=== PATIENT | male | born 1935 | race Caucasian/White ===

== ENCOUNTER → 2020-12-16 14:44 | Outpatient (CLI) | payer OTHER, SELFPAY ==
--- NOTE | ~2020-12-16 | XR_ITS ---
EXAMINATION: XR hip RT 2V w AP pelvis INDICATION: Right hip pain TECHNIQUE: AP view of the pelvis and two views of the right hip are obtained. COMPARISON: None available FINDINGS: Bone alignment is normal. There is no fracture. 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 T here is at least moderate spondylosis of the visualized lower lumbar spine. Calcified atherosclerosis is noted. IMPRESSION: 1. No acute osseous abnormality. Reviewed, dictated and finalized at location A.
== END ==
PROVIDERS: PCP Internal Medicine; Visit Provider Internal Medicine
DX: M25.551 Pain in right hip (principal)
CPT/HCPCS: 73502

== ENCOUNTER 2021-04-07 16:54 | Emergency (ER) | payer OTHER, SELFPAY ==
[2021-04-07 16:59] VITALS: BP 170/69; PULSE 70; RESP 16; TEMP 36.4; O2SAT 99
--- NOTE | 2021-04-07 17:51 | ED.URI ---
HPI - URI/Sore Throat General Chief Complaint: Upper Respiratory Infection Stated Complaint: covid symptoms Time Seen by Provider: 04/07/21 17:23 Source: patient and RN notes reviewed Mode of arrival: ambulatory Limitations: no limitations History of Present Illness HPI Narrative: Patient presents today complaining of rhinorrhea, cough since yesterday. Denies fever, shortness of breath, loss of taste or smell, nausea or vomiting. This past weekend, patient attended a 4-day wedding with 150 attendees. He and his have become ill and were told to come in to urgent care for testing for COVID-19 by his PCP. Patient has been vaccinated against COVID-19. He has tried no [id number] treatment prior to arrival. MD elicited complaint: cough and rhinorrhea Related Data Home Medications Medication Instructions Recorded Confirmed atorvastatin 04/07/21 atropine [Isopto Atropine] drp 04/07/21 clopidogrel 04/07/21 cyanocobalamin (vitamin B-12) mcg 04/07/21 fluorometholone drp 04/07/21 metoprolol tartrate 04/07/21 omeprazole 04/07/21 prednisone 04/07/21 Allergies Allergy/AdvReac Type Severity Reaction Status Date / Time No Known Allergies Allergy Verified 04/07/21 17:03 Review of Systems Review of Systems: CONSTITUTIONAL: Denies body aches, fever, chills, or sweats. EYES: Denies visual changes, redness, or discharge. ENT: Denies congestion, sore throat, or otalgia.+ Rhinorrhea CARDIOVASCULAR: Denies chest pain, palpitations, or edema. RESPIRATORY: Denies dyspnea.+ Cough GASTROINTESTINAL: Denies abdominal pain, nausea, vomiting, or diarrhea. GENITOURINARY: Denies dysuria or hematuria. SKIN: Denies rash, itching, or wounds. MUSCULOSKELETAL: Denies back pain, joint pain, or myalgia. NEUROLOGIC: Denies headache, numbness, tingling, or weakness. PSYCH: Denies depression or anxiety. [facility] Past Medical History Medical History (Updated 04/07/21 @ 18:10 by Mei Coles, MARISSA, BC) Cochlear implant in place Glaucoma High cholesterol Hypertension Temporal arteritis Surgical History Surgical History (Updated 04/07/21 @ 18:10 by Mei Coles, CONTROL MANAGER, BC) History of coronary artery stent placement Comments At time of signature, I have reviewed and agree with nursing past medical, surgical, social and family history unless otherwise noted. Please see nursing chart for further information. There is no relevant family history pertinent to the presenting complaint Exam Narrative: GENERAL: Well-appearing, well-nourished, and in no acute distress. HEAD: Normocephalic, atraumatic. EYES: EOMI. No redness or drainage. Conjunctivae normal. ENT: Mucous membranes pink and moist. Nares clear. No rhinorrhea. TMs normal bilaterally. Throat normal. Uvula midline. Hard of hearing NECK: Normal AROM. Supple. No lymphadenopathy. CHEST: No respiratory distress. Clear to auscultation. HEART: Regular rate and rhythm. No murmur appreciated. Normal peripheral pulses. EXTREMITIES: Normal range of motion. No edema. SKIN: Warm, dry, no rash. Capillary refill normal. Normal skin turgor. NEURO: No focal deficits. Alert and oriented x3. Gait steady. PSYCH: Normal affect. No signs of depression or anxiety. Course Vital Signs Vital signs: Vital Signs Temperature 97.5 F L 04/07/21 16:59 Pulse Rate 70 04/07/21 16:59 Respiratory Rate 16 04/07/21 16:59 Blood Pressure 170/69 H 04/07/21 16:59 Pulse Oximetry 99 04/07/21 16:59 Temperature 97.5 F L 04/07/21 16:59 Pulse Rate 70 04/07/21 16:59 Respiratory Rate 16 04/07/21 16:59 Blood Pressure 170/69 H 04/07/21 16:59 Pulse Oximetry 99 04/07/21 16:59 Reviewed. Pt has been instructed to follow up with his PCP regarding his elevated blood pressure today. MDM - URI/Sore Throat Differential Diagnosis Differential diagnosis: Likely upper respiratory infection, sinusitis, viral infection and other (COVID-19) Lab Data Attestation: I review
[2021-04-09 18:27] LABS: SARS-CoV-2 RNA PCR Negative
== END 2021-04-07 18:03 | disposition home or self-care (01) ==
PROVIDERS: Emergency Provider Nurse Practitioner; PCP Internal Medicine
DX: J06.9 Acute upper respiratory infection, unspecified (principal); Z20.822 Contact with and (suspected) exposure to COVID-19; Z96.21 Cochlear implant status; H40.9 Unspecified glaucoma; E78.00 Pure hypercholesterolemia, unspecified; I10 Essential (primary) hypertension; Z95.5 Presence of coronary angioplasty implant and graft
CPT/HCPCS: 87426; 99203; C9803; G0463; U0003; U0005

== ENCOUNTER 2023-07-15 14:43 | Emergency (ER) | payer OTHER, SELFPAY ==
[2023-07-15 14:53] VITALS: BP 171/72; PULSE 62; RESP 16; TEMP 36.4; O2SAT 100
--- NOTE | 2023-07-15 15:03 | ED.GENADULT ---
HPI - General Adult General Chief complaint: Ear Stated complaint: NOSEBLEED Source: patient, family and RN notes reviewed History of Present Illness HPI narrative: 88 yo M presents to urgent care with complaints of a nosebleed since 4 am today. Pt states he has been trying to control this at home with pinching the nose and applying ice packs to his forehead and posterior neck. Pt states he normally take 81 mg of ASA daily but didn't take it today. Denies any nasal injury, pain, JENKINS, dizziness, chest pain, or SOB. Related Data Home Medications Medication Instructions Recorded Confirmed atropine 1 % eye drops (Isopto 1 drp LEFT EYE 3XW 04/07/21 07/15/23 Atropine) cyanocobalamin (vitamin B-12) 1,000 mcg PO DAILY 04/07/21 07/15/23 1,000 mcg tablet fluorometholone 0.1 % eye 1 drp LEFT EYE DAILY 04/07/21 07/15/23 drops,suspension metoprolol tartrate 50 mg tablet 50 mg PO BID 04/07/21 07/15/23 omeprazole 20 mg capsule,delayed 20 mg PO DAILY 04/07/21 07/15/23 release prednisone 5 mg tablet 4 mg PO DAILY 04/07/21 07/15/23 aspirin 81 mg capsule 81 mg PO DAILY 07/15/23 07/15/23 brimonidine 0.2 %-timolol 0.5 % 1 drp RIGHT EYE BID 07/15/23 07/15/23 eye drops ketorolac 0.5 % eye drops 1 drp RIGHT EYE BID 07/15/23 07/15/23 Allergies Allergy/AdvReac Type Severity Reaction Status Date / Time No Known Allergies Allergy Verified 07/15/23 15:08 Review of Systems Review of Systems: CONSTITUTIONAL: Denies fever, chills, or sweats. EYES: Denies visual changes, redness, or discharge. ENT: nose bleed CARDIOVASCULAR: Denies chest pain, palpitations, or edema. RESPIRATORY: Denies cough or dyspnea. GASTROINTESTINAL: Denies abdominal pain, nausea, vomiting, or diarrhea. GENITOURINARY: Denies dysuria or hematuria. SKIN: Denies rash or itching. MUSCULOSKELETAL: Denies back pain, joint pain, or myalgia. NEUROLOGIC: Denies headache, numbness, or weakness. Pertinent positives per HPI. [facility] Past Medical History Medical History (Updated 07/15/23 @ 16:14 by Katy Jim, EXPEDITION SUPERVISOR) Cochlear implant in place Glaucoma High cholesterol Hypertension Temporal arteritis Surgical History Surgical History (Updated 04/07/21 @ 18:10 by Mei Coles, [facility], ) History of coronary artery stent placement Comments At the time of my signature, I reviewed and agree with the nursing past medical, surgical, social, and family history. There is no relevant family history pertinent to the patient complaint. Exam Narrative: GENERAL: This is a well-nourished, well-developed patient, in no apparent distress. HEAD: normocephalic, atraumatic. EYES: Sclera clear/white. Vision is grossly intact. EARS: External ears normal, auditory canals clear and without drainage, TMs normal without perforation. Hearing grossly intact. NOSE: External nose normal with no obvious nasal discharge. large blood clot removed with pt's tissue when it was removed. Thin streak of blood noted to posterior pharynx. THROAT: Mucous membranes moist, posterior pharynx clear. NECK: Neck supple, non-tender without lymphadenopathy, masses or thyromegaly. CARDIOVASCULAR: Regular rate and rhythm without murmurs, gallops, or rubs. RESPIRATORY: Clear to auscultation. Breath sounds equal bilaterally. No wheezes, rales, or rhonchi. GASTROINTESTINAL: Abdomen soft, non-tender, nondistended. Bowel sounds are active. No hepato-splenomegaly, or palpable masses. No guarding. SKIN: warm, intact with no suspicious lesions or rash, good texture and turgor. NEURO: awake, alert, and oriented to person, place and time. There were no obvious focal neurologic abnormalities. EXTREMITIES: No clubbing, cyanosis, or edema. No joint tenderness, effusion, or edema noted. BACK: Nontender without deformity or crepitus. No flank tenderness. Course Course Level of Care: Express Care Visit Vital Signs Vital signs: Vital Signs Temperature 97.5 F L 07/15/23 14:53 Pulse Rate 62
[2023-07-15] MEDS: PHENYLEPHRINE 1% NA SPR (*BKC) 15 ML BTL 1 SPRAY NASAL (16:19)
== END 2023-07-15 16:29 | disposition home or self-care (01) ==
PROVIDERS: Emergency Provider Nurse Practitioner Family; PCP Internal Medicine
DX: R04.0 Epistaxis (principal); H40.9 Unspecified glaucoma; E78.00 Pure hypercholesterolemia, unspecified; I10 Essential (primary) hypertension; I25.10 Atherosclerotic heart disease of native coronary artery without angina pectoris; Z95.5 Presence of coronary angioplasty implant and graft; Z96.21 Cochlear implant status; Z79.82 Long term (current) use of aspirin
CPT/HCPCS: 99212; A9270; G0463

== ENCOUNTER → 2023-08-17 10:41 | Outpatient (CLI) | payer OTHER, SELFPAY ==
--- NOTE | ~2023-08-17 | XR_ITS ---
XR chest 2V 08/17/2023 11:17 Indication: Cough. Procedure: 2 view chest Comparison: No prior studies for comparison. Findings: Heart size normal. No focal air space disease, pulmonary edema, pleural effusion or suspect ed pneumothorax. Impression: 1: No acute cardiopulmonary disease. Reviewed, dictated and finalized at location B. 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
== END ==
PROVIDERS: PCP Internal Medicine; Visit Provider Internal Medicine
DX: R05.9 Cough, unspecified (principal)
CPT/HCPCS: 71046

== ENCOUNTER → 2023-10-25 10:10 | Outpatient (CLI) | payer OTHER, SELFPAY ==
--- NOTE | ~2023-10-25 | CT_ITS ---
Non-contrast CT scan of the Abdomen and Pelvis Clinical indication: Abdominal pain Technique: 2.5 mm axial scans were obtained through the abdomen and pelvis without intravenous or or al contrast. Dose reduction technique was used on this scan by utilizing automated exposure control a nd iterative reconstruction technique. The dose-length product (DLP) was 707.47 mGy-cm. Findings: Images through the lung bases reveal no abnormalities. Probable punctate nonobstructing renal stones. No ureteral stone or hydronephrosis seen. The liver, spleen, pancreas, gallbladder, and adrenals appear normal. There are atherosclerotic calci fications of the aorta. There is no evidence of bowel obstruction. Images through the pelvis were performed. There is no evidence of ascites or lymphadenopathy. Urinary bladder unremarkable. Prostate gland is enlarged. Impression: Probable punctate nonobstructing renal stones. Enlarged prostate gland. Reviewed, dictated and finalized at [facility]. VISION RECEIVER ANALYZER Impression: Probable punctate nonobstructing renal stones. Enlarged prostate gland.
== END ==
PROVIDERS: PCP Internal Medicine; Visit Provider Internal Medicine
DX: R10.32 Left lower quadrant pain (principal); N40.0 Benign prostatic hyperplasia without lower urinary tract symptoms
CPT/HCPCS: 74176